=== PATIENT | male | born 1990 | race Caucasian/White ===

== ENCOUNTER 2018-05-09 19:40 | Emergency (ER) | payer SELFPAY ==
[~2018-05-09] VITALS: Ht 175.3 cm; Wt 65.8 kg
[2018-05-09 20:00] VITALS: BP 147/90
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
== END 2018-05-09 22:31 ==
LOC: ERH 19:40
DX: S01.512A Laceration without foreign body of oral cavity, initial encounter (principal); Y04.8XXA Assault by other bodily force, initial encounter; Y92.9 Unspecified place or not applicable; Y93.9 Activity, unspecified